=== PATIENT | female | born 1955 | race Caucasian/White ===

== ENCOUNTER 2016-10-01 06:11 | Day surgery (SDC) | payer OTHER ==
[2016-10-01] VITALS (14 sets, daily range): BP systolic 111–166; BP diastolic 54–87; PULSE 57–85; RESP 1–21; O2SAT 97–100
[~2016-10-01] VITALS: Ht 149.9 cm; Wt 69.9 kg
[~2016-10-01 06:11] MED LIST: CeFAZolin Inj 2 GM in IV Premix 1 EACH IV ONE; ESOM40CA41 PO; HYDR-4003 PO; TETR500C2 PO
[2016-10-01] MEDS ORDERED: Propofol 10,000 mCg/mL 20 mL Inj ONE (06:12)
[2016-10-01] MEDS ORDERED: fentaNYL-PF 50 mCg/mL 2 mL Inj ONE (06:12)
[2016-10-01] MEDS: Lactated Ringer's 1,000 ML IV SCH ×2 (06:53→08:28)
--- NOTE | 2016-10-01 08:11 | PCM.HPANE ---
Patient Data Surgeon Admitting Provider: Attending Provider:Zeeshan Hess MD Primary Care Physician:Navya An PA-C Other Provider:Chris Agee Anesthesia Reason for Visit Left Knee Arthrofibrosis LEFT KNEE ARTHROFIBROSIS Ht/WT & BMI Height (Feet): 4 Height (Inches): 11 Weight (Kilograms): 69.9 Body Mass Index 31.00 Allergies Coded Allergies: morphine (Verified Allergy, Severe, agitated, DIZZINESS, CONFUSION, 10/01/16 ) Past Anesthesia History Anesthesia History: Denies:: Abnormal Airway, Anesthesia Reactions, Difficult Intubation, Fam Anesthesia Reaction Diabetes History Hx Diabetes?: No MRSA MRSA: No Medications Hypertension Medication: No Home Meds Incl Beta Stacie: No Reported Medications Hydrocodone-Acetaminophen 5-325 mg 1 Each Tablet1 Tablet PO Q8H PRN For Pain Ref 0 09/26/16 Tetracycline 500 Mg [id number] Mg PO BID 09/26/16 Esomeprazole Magnesium (Nexium)40 Mg Capsule.dr40 Mg PO BID Ref 0 07/11/16 Discontinued Reported Medications Cholecalciferol (Vitamin D3) (Vitamin D3)2,000 Unit Tablet2,000 Unit PO DAILY 07/11/16 Discontinued Scripts Hydroxyzine Pamoate (HydrOXYzine Pamoate)25 Mg [id number] Mg PO Q6H PRN discomfort #12 CAPSULE Prov:Mila Barnes PA-C 07/19/16 Hydrocodone-Acetaminophen 5-325 mg 1 Each Tablet1-2 Tablet PO Q4H PRN For Moderate Pain #60 TABLET Prov:Mila Barnes PA-C 07/19/16 Rivaroxaban (Xarelto)10 Mg [id number] Mg PO DAILYWM #12 TABLET Prov:Mila Barnes PA-C 07/19/16 History History of ENT Problems?: No HEENT History: Denies:: Abnormal Airway Cataracts Difficult Intubation Dysphagia Hearing Problem Sinus Problem TMJ Hx of Heart Problems?: Yes Cardiovascular History: Positive for:: Heart Murmur (cardiac clearance from Dr Gold for 07/09 surgery) Denies:: AICD Cardiac Surgery Chest Pain Congestive Heart Failure Edema Hypertension Irregular Heartbeat Pacemaker Rheumatic Fever Thrombophlebitis Hx of Respiratory Problem?: No Respiratory History: Denies:: Asthma COPD Chest Surgery Dyspnea Emphysema Hemoptysis Oxygen Administration Pneumonia Pulmonary Embolism Tuberculosis Use of C-PAP Machine Use of Inhalers / NEBS Hx Neurologic Problems?: No Neurological History: Positive for:: Dizziness (vertigo) Denies:: Alzheimer's Disease CVA Dementia Headaches Multiple Sclerosis Parkinson's Disease Seizures TIA Hx of GI Problems?: Yes Gastrointestinal History: Positive for:: Gastroesphageal Reflux (food takes a long time to go down) Heartburn Denies:: Cirrhosis Diverticulitis Gall Bladder Disease Gastrointestinal Bleeding Hepatitis Hiatal Hernia Liver Disease Rectal Bleeding Hx of Problems?: No Genitourinary History: Denies:: Kidney Stones Urinary Tract Infection Female Hx: Positive for:: Problems with Breasts? (hx of benign breast biopsy) Denies:: Currently (post menopausal) Skin History: Positive for:: History Skin Disorders? (rashing on face- currently being eval. waiting for derm appt) Denies:: Pressure Ulcers Hx Musculoskeletal Problems?: Yes Musculoskeletal History: Positive for:: Joint Replacement (left knee) Musculoskeletal Trauma (left knee pain current admission problem) Osteoarthritis Denies:: Fibromyalgia Systemic Lupus Hx of Psycho/Social Problems?: No Psycho Social History: Denies:: Anxiety Bipolar Disorder Hx Depression Suicide Attempt Hx Surgeries?: Yes (right rotator cuff repair, c sections, left total knee) Hx Any Other Health Problems?: Yes Other History: Denies:: Cancer Hospitalization Thyroid Disease History Blood Transfusions: Positive for:: Accept Blood Products? Denies:: Blood Transfuse Reaction Blood Transfusions Hx Diabetes: No Hx Alcohol Use: YesAlcoholic Drinks Per Day: glass wine every few monthsHx Substance Use: NoHave You Smoked inLast 12 mo: No Stop/Bang S-Snoring: Do You Snore Loudly: No T-Tired: feel tired, fatigued: No O-Obsered: Observed not breath: No P-Blood Pressure: treated: No B- Body Mass Index > 35 kg/m2: No A- Age over 50: Yes N- Neck Large Circumference: No G- Gender Male: No PETER Total Score: 1 PETER Risk Assessment: Low Risk, <3 Yes Risk Assessment Category Category 1A: Patient has history of documented sleep apnea, and HAS NOT received any narcotic, sedative or anesthesia administration during this stay. Category 1B: Patient has history of documented sleep apnea, and HAS received any narcotic , sedative or anesthesia administration during this stay Category 2: Patient has SUSPECTED Obstructive Sleep Apnea, and HAS received any narcotic , sedative or anesthesia administration during this stay. Category 3: Patient has SUSPECTED Obstructive Sleep Apnea and HAS NOT received narcotic, sedative or anesthesia administration during this stay. Category 4: Outpatient in Procedural Areas with known sleep apnea or who screen positive for High Risk via the STOP/BANG questionnaire. Exam Exam Vital Signs Vital Signs Date Time Temp Pulse Resp B/P Pulse Ox O2 Delivery O2 Flow Rate FiO2 10/01/16 06:36 36.6 69 14 139/76 97 Room Air General Appearance: Alert, Oriented X3, Cooperative, No Acute Distress HEENT/AIRWAY: MP 3 Lungs: Clear to Auscultation, Normal Air Movement Heart: Exam Unremarkable, Regular Rate/Rhythm, No Murmurs/Rubs/Gallops Meds/Labs/Diagnostics Admission Meds Current Medications Lactated Ringer's (Lr) 1,000 ml @ 120 mls/hr Q8H20M IV Last administered on t 06:53; Start 10/01/16 at 05:00; Stop 10/01/16 at 13:19 Plan Impression Patient chart reviewed, patient interviewed and anesthestic plan with risks, benefits, and alternatives discussed, and informed consent obtained. NPO Status: 2100 09/30/16 ASA Physical Status: ASA1 Normal Healthy Anesthetic Plan: GA Bene/Risks/Altern/Consents: Yes HP Complete Prior to Induction: Yes Nadeem Amador MD Oct 01, 2016 08:11
[2016-10-01] MEDS ORDERED: Dexamethasone 4 mg/mL Inj INTRARTICU ONE (08:38)
[2016-10-01] MEDS ORDERED: Bupivacaine-MPF 0.5% 30 mL Inj INFILTRATE ONE (08:38)
[2016-10-01] MEDS ORDERED: EPHEDrine Sulfate 50 mg/mL Inj IVPUSH PRN (08:55)
[2016-10-01] MEDS ORDERED: Phenylephrine 10,000 mCg/mL Inj IVPUSH PRN (08:55)
[2016-10-01] MEDS ORDERED: Dexamethasone 4 mg/mL Inj IVPUSH PRN (08:55)
[2016-10-01] MEDS ORDERED: MetoCLOpramide 5 mg/mL 2 mL Inj IVPUSH PRN (08:55)
[2016-10-01] MEDS ORDERED: HYDROmorphone 1 mg/mL Inj IVPUSH PRN (08:55)
[2016-10-01] MEDS ORDERED: Lactated Ringer's 500 ML IV PRN (08:55)
[2016-10-01] MEDS ORDERED: Lactated Ringer's 1,000 ML IV SCH (08:55)
[2016-10-01] MEDS ORDERED: Ondansetron 2 mg/mL 2 mL Inj IVPUSH PRN (08:55)
--- NOTE | 2016-10-01 08:57 | PCM.ANEP1 ---
Post Anesthesia Phase 1 PACU Phase 1 Assessment Vital Signs Vital Signs Date Time Temp Pulse Resp B/P Pulse Ox O2 Delivery O2 Flow Rate FiO2 10/01/16 06:36 36.6 69 14 139/76 97 Room Air Anesthetic Administered: GA Level of Alertness: Sleepy, easy to arouse NORTH's with Equal Strength: Yes Pain: No Nausea or Vomiting: No Oxygen Delivery: Simple Mask Lungs: Clear to Auscultation, Normal Air Movement Dermatome Level: Full Sensation Nadeem Amador MD Oct 01, 2016 08:57
[2016-10-01] MEDS ORDERED: HYDROcodone-APAP 5-325 mg Tablet PO PRN (09:05)
[2016-10-01] MEDS ORDERED: Ketorolac 15 mg/mL Inj IVPUSH ONE (09:05)
[2016-10-01] MEDS: fentaNYL-PF 50 mCg/mL 2 mL Inj IVPUSH PRN ×3 (09:05→09:20)
--- NOTE | 2016-10-01 09:07 | PCM.ORTHOP ---
Orthopedic Operative Report Date of Service: Oct 01, 2016 Pre Operative Diagnosis Left total knee arthroplasty arthrofibrosis Post Operative Diagnosis Same Procedure Left total knee arthroplasty manipulation under anesthesia, intra-articular steroid injection Surgeon Surgeon: Zeeshan Hess MD Assistants: Ranjit Cabello Indication for Procedure Left total knee arthroplasty arthrofibrosis Findings Scar tissue formation, lysis Details of Procedure Indications: Jeanette Meredith 61 old female who is status post left total knee arthroplasty in June 2016. She reports that she was unable to get a ride to her physical therapist the first 2 weeks status post surgery. She has a history of adhesive capsulitis in her right shoulder which she had to undergo manipulation under anesthesia. She developed left knee arthrofibrosis subsequently. The patient had exhausted all conservative treatments including, NSAIDs, narcotics, physical therapy. A clear explanation was given to the patient regarding the condition present, and the available conservative and surgical options. It was emphasized that the risks and benefits of surgery include but are not limited to damage to adjacent structures such as nerves, blood vessels and tendons, senior care disability and pain, arthritis, hypersensitivity, deep vein thrombosis, pulmonary embolism, broken hardware, fracture of bone, failure of surgery, need for further procedures at time of surgery or later, loss of limb or life. The patient was given an explanation and the patient voiced understanding of what to expect after the procedure or surgery, the limitations in activities of daily living, the likely duration for post operative recovery and the instructions that are to be followed. At the end the patient was invited to seek clarification or ask further questions but there were none. The patient voiced understanding of the entire consultation. Description of Procedure: Patient taken to operating room and transferred to operating table in supine position. Time out was performed with both anesthesia and orthopaedics faculty present to confirm details of case to be performed. After time out performed, patient placed under anesthesia. The left knee was then carefully manipulated in a controlled fashion in flexion. Preoperatively, the patient's motion was: ROM 10-95 Intraoperatively, after manipulation the patient's motion was: ROM 2 - 125 Discharge injection was performed intra-articularly from the suprapatellar pouch with 10 mL of Marcaine plain and 8 mg of dexamethasone. Patient tolerated procedure well and there was no complications. I was present for the entire procedure. Patient has physical therapist to start tomorrow for aggressive range of motion. Grafts, Implants: None Complications There were no periprocedural complications identified. Condition Stable Anesthetic Administered: GA Catheters: None Output, Estimated Blood Loss: 0 Blood Admin during surgery: No Surgical Cast or Splint: None Surgical Specimen Removed: No Specimen sent to Pathology: No copies to: Zeeshan Hess MD, Christopher L MD Oct 01, 2016 09:07
--- NOTE | 2016-10-01 09:15 | PCM.ANEP2 ---
Post Anesthesia Evaluation ASA/CMS Post Anesthesia VS in Patient's Normal Range?: Yes Resp Stable; Airway Patent?: Yes CV Function & Hydration Stable: Yes Mental Status Recovered?: Yes Pain control Satisfactory?: Yes N/V Control Satisfactory?: Yes Nadeem Amador MD Oct 01, 2016 09:15
[2016-10-01] MEDS ORDERED: HYDROmorphone 0.5 mg/0.5 mL iSecure Syringe ONE (09:20)
[2017-01-28] MEDS ORDERED: ESOM40CA41 PO (16:49)
[2017-01-28] MEDS ORDERED: HC A RC (16:49)
== END 2016-10-01 23:59 | disposition home or self-care (01) ==
LOC: SAS 06:11
PROVIDERS: ATTEND Orthopaedic Surgery
DX: M24.662 Ankylosis, left knee (principal); G89.4 Chronic pain syndrome; Z79.891 Long term (current) use of opiate analgesic
CPT/HCPCS: 27570; J0690; J1100; J1170; J1885; J2250; J3010; J7120

== ENCOUNTER 2017-01-30 05:58 | Day surgery (SDC) | payer OTHER ==
[~2017-01-30] VITALS: Ht 149.9 cm; Wt 69.7 kg
[2017-01-30] VITALS (8 sets, daily range): BP systolic 107–128; BP diastolic 61–77; PULSE 56–68; RESP 11–18; O2SAT 97–100
[2017-01-30] MEDS: Lactated Ringer's 1,000 ML IV SCH ×2 (05:22→07:24)
[~2017-01-30 05:58] MED LIST changes: -CeFAZolin Inj 2 GM in IV Premix 1 EACH IV ONE; +HC A RC; -HYDR-4003 PO; -TETR500C2 PO
[2017-01-30] MEDS ORDERED: Dexamethasone 4 mg/mL Inj ONE (05:59)
[2017-01-30] MEDS ORDERED: Ondansetron 2 mg/mL 2 mL Inj ONE (05:59)
[2017-01-30] MEDS ORDERED: fentaNYL-PF 50 mCg/mL 2 mL Inj ONE (05:59)
[2017-01-30] MEDS ORDERED: Propofol 10,000 mCg/mL 20 mL Inj ONE (05:59)
[2017-01-30] MEDS ORDERED: Bupivacaine Liposome 1.3% 20 mL Inj INFILTRATE ONE (06:00)
--- NOTE | 2017-01-30 06:36 | PCM.HPANE ---
Patient Data Surgeon Admitting Provider: Attending Provider:Ramiro Martinez MD Primary Care Physician:Navya An PA-C Other Provider:Abeba Ageeingham Anesthesia Reason for Visit External Hemorrhoids Ht/WT & BMI Height (Feet): 4 Height (Inches): 11 Weight (Kilograms): 69.4 Body Mass Index 30.00 Allergies Coded Allergies: morphine (Verified Allergy, Severe, agitated, DIZZINESS, CONFUSION, 10/01/16 ) Past Anesthesia History Anesthesia History: Denies:: Abnormal Airway, Anesthesia Reactions, Difficult Intubation, Fam Anesthesia Reaction Diabetes History Hx Diabetes?: No MRSA MRSA: No Medications Reported Medications Hydrocortisone/Pramoxine (Proctofoam-Hc 1%-1% Foam)10 Gm Foam10 Gm RC PRN For Pain 01/28/17 Esomeprazole Magnesium (Nexium)40 Mg Capsule.dr40 Mg PO BID Ref 0 01/28/17 Discontinued Reported Medications Hydrocodone-Acetaminophen 5-325 mg 1 Each Tablet1 Tablet PO Q8H PRN For Pain Ref 0 09/26/16 Tetracycline 500 Mg [id number] Mg PO BID 09/26/16 Esomeprazole Magnesium (Nexium)40 Mg Capsule.dr40 Mg PO BID Ref 0 07/11/16 History History of ENT Problems?: No HEENT History: Denies:: Abnormal Airway Cataracts Difficult Intubation Dysphagia Hearing Problem Sinus Problem TMJ Denture Type: None Teeth Condition: Within Normal Limits Hx of Heart Problems?: Yes Cardiovascular History: Positive for:: Heart Murmur (cardiac clearance from Dr Gold for 07/09 surgery) Denies:: AICD Cardiac Surgery Chest Pain Congestive Heart Failure Edema Hypertension Irregular Heartbeat Pacemaker Rheumatic Fever Thrombophlebitis Hx of Respiratory Problem?: No Respiratory History: Denies:: Asthma COPD Chest Surgery Dyspnea Emphysema Hemoptysis Oxygen Administration Pneumonia Pulmonary Embolism Tuberculosis Use of C-PAP Machine Hx Neurologic Problems?: No Neurological History: Positive for:: Dizziness (vertigo) Denies:: Alzheimer's Disease CVA Dementia Headaches Multiple Sclerosis Parkinson's Disease Seizures Hx of GI Problems?: Yes Hx of Problems?: No Genitourinary History: Denies:: Kidney Stones Urinary Tract Infection Female Hx: Positive for:: Problems with Breasts? (hx of benign breast biopsy) Denies:: Currently (post menopausal) Skin History: Positive for:: History Skin Disorders? (rashing on face- currently being eval. waiting for derm appt) Denies:: Pressure Ulcers Hx Musculoskeletal Problems?: Yes Musculoskeletal History: Positive for:: Joint Replacement (left knee/ as well as post op knee manip) Musculoskeletal Trauma Denies:: Systemic Lupus Hx of Psycho/Social Problems?: No Psycho Social History: Denies:: Anxiety Bipolar Disorder Hx Depression Suicide Attempt Hx Surgeries?: Yes (right rotator cuff repair, c sections, left total knee) Hx Any Other Health Problems?: Yes Other History: Denies:: Cancer Hospitalization Thyroid Disease History Blood Transfusions: Denies:: Blood Transfuse Reaction Blood Transfusions Hx Diabetes: No Hx Alcohol Use: YesHx Substance Use: No Smoking Status: Never Smoker Have You Smoked inLast 12 mo: No Stop/Bang S-Snoring: Do You Snore Loudly: No T-Tired: feel tired, fatigued: No O-Obsered: Observed not breath: No P-Blood Pressure: treated: No B- Body Mass Index > 35 kg/m2: No A- Age over 50: Yes N- Neck Large Circumference: No G- Gender Male: No PETER Total Score: 1 PETER Risk Assessment: Low Risk, <3 Yes Risk Assessment Category Category 1A: Patient has history of documented sleep apnea, and HAS NOT received any narcotic, sedative or anesthesia administration during this stay. Category 1B: Patient has history of documented sleep apnea, and HAS received any narcotic , sedative or anesthesia administration during this stay Category 2: Patient has SUSPECTED Obstructive Sleep Apnea, and HAS received any narcotic , sedative or anesthesia administration during this stay. Category 3: Patient has SUSPECTED Obstructive Sleep Apnea and HAS NOT received narcotic, sedative or anesthesia administration during this stay. Category 4: Outpatient in Procedural Areas with known sleep apnea or who screen positive for High Risk via the STOP/BANG questionnaire. Exam Exam Vital Signs Vital Signs Date Time Temp Pulse Resp B/P Pulse Ox O2 Delivery O2 Flow Rate FiO2 01/30/17 06:33 35.9 56 18 127/71 97 Room Air General Appearance: Alert, Oriented X3, Cooperative, No Acute Distress HEENT/AIRWAY: MP 2 Lungs: Clear to Auscultation, Normal Air Movement Heart: Exam Unremarkable, Regular Rate/Rhythm, No Murmurs/Rubs/Gallops Meds/Labs/Diagnostics Admission Meds Current Medications Lactated Ringer's (Lr) 1,000 ml @ 120 mls/hr Q8H20M IV Last administered on t 05:22; Start 01/30/17 at 05:00; Stop 01/30/17 at 13:19 Plan Impression Patient chart reviewed, patient interviewed and anesthestic plan with risks, benefits, and alternatives discussed, and informed consent obtained. ASA Physical Status: ASA1 Normal Healthy Anesthetic Plan: GA Bene/Risks/Altern/Consents: Yes HP Complete Prior to Induction: Yes Praful Craig MD Jan 30, 2017 06:36
[2017-01-30] MEDS ORDERED: CeFAZolin Inj 2 gm / 50mL D5W IV ONE (06:50)
[2017-01-30] MEDS ORDERED: CeFAZolin Inj 2 GM in IV Premix 1 EACH IV ONE (07:00)
[2017-01-30] MEDS ORDERED: Ondansetron 2 mg/mL 2 mL Inj IVPUSH PRN (07:45)
[2017-01-30] MEDS ORDERED: Dexamethasone 4 mg/mL Inj IVPUSH PRN (07:45)
[2017-01-30] MEDS ORDERED: MetoCLOpramide 5 mg/mL 2 mL Inj IVPUSH PRN (07:45)
[2017-01-30] MEDS ORDERED: Lactated Ringer's 1,000 ML IV SCH (07:45)
[2017-01-30] MEDS ORDERED: Labetalol 5 mg/mL 4 mL Inj IV PRN (07:45)
[2017-01-30] MEDS ORDERED: Phenylephrine 10,000 mCg/mL Inj IVPUSH PRN (07:45)
[2017-01-30] MEDS ORDERED: Atropine 0.4 mg/mL Inj IVPUSH PRN (07:45)
[2017-01-30] MEDS ORDERED: EPHEDrine Sulfate 50 mg/mL Inj IVPUSH PRN (07:45)
[2017-01-30] MEDS ORDERED: HYDROmorphone 1 mg/mL Inj IVPUSH PRN (07:45)
[2017-01-30] MEDS ORDERED: Lactated Ringer's 500 ML IV PRN (07:45)
[2017-01-30] MEDS ORDERED: fentaNYL-PF 50 mCg/mL 2 mL Inj IVPUSH PRN (07:45)
--- NOTE | 2017-01-30 08:23 | PCM.DISURG ---
Surgical Discharge Instruction Date of Service Jan 30, 2017 Dates of Hospitalization Date of Hospital Admission Providers Admitting Physician: Primary Care Physician: Navya An PA-C Attending Physician: Ramiro Martinez MD Discharge Diagnosis Discharge Diagnosis Hemorrhoids, rectocele Diet Discharge Diet: No restrictions Activity Discharge Activity-General: Activity as pain allows Dressing and Incisional Care Dressing Care: Change soiled dressing (as needed.) Hygiene: May shower, Other (warm sitz baths twice daily) Follow Up Plan Follow Up Plan In the general surgery PA postoperative clinic in 2-3 weeks Call your provider for: Fever (over 101.5) Ramiro Martinez MD Jan 30, 2017 08:23
--- NOTE | 2017-01-30 08:29 | PCM.SURGOP ---
Surgical Operative Report Date of Service: Jan 30, 2017 Pre Operative Diagnosis External and internal hemorrhoid Post Operative Diagnosis Same, rectocele Procedure: Exam under anesthesia, right posterior hemorrhoidectomy Surgeon [facility] Consultant: Surgeon: Ramiro Martinez MD Assistants: None Indication for Procedure 61-year-old woman who presented with prolapsing tissue with every bowel movement , causing significant pain. She also had a single episode of significant rectal bleeding. She underwent colonoscopy in August which showed internal hemorrhoids, diverticulosis, but no other abnormalities. After discussion of risks and benefits, she agreed to proceed with hemorrhoidectomy. Findings: There was a right posterior hemorrhoid bundle which had both internal and external components. There was a significant rectocele. Procedure Details After smooth induction of general anesthesia with an LMA, she was placed in the high lithotomy position, and was prepped and draped in wide sterile fashion. A procedural pause was performed according to the SCOAP checklist, and all were found to be in agreement. Because of her recent joint replacement, a single dose of antibiotics was given. Digital rectal exam was performed, revealing internal and external hemorrhoid tissue in the right posterior position, as well as a fairly significant rectocele, not previously appreciated. Exposure of the hemorrhoid bundle without obstruction from the rectocele was actually relatively difficult. A stay suture was placed at the apex of the hemorrhoid bundle, above the dentate line. The hemorrhoid was excised from the right posterior position down to the level of the external anal sphincter with an elliptical incision, and once it was dissected free, it was sent for permanent pathology. Hemostasis was achieved with electrocautery. The anoderm was then closed with a running, locking 2-0 chromic suture, again which was somewhat difficult because of her rectocele. There was no anal stenosis at the end of the closure. A perianal block was then performed using liposomal bupivacaine. Sterile dressings were applied. At the end of the case all needle and sponge counts were correct 2. The patient was awakened from anesthesia without difficulty, and taken to the recovery room in satisfactory condition, having tolerated the procedure well. Complications There were no periprocedural complications identified. Surgical Specimen Removed: Yes Specimen sent to Pathology: Yes Surgical Specimen description: Hemorrhoid Anesthetic Plan: GA Grafts, Implants: None Output, Estimated Blood Loss: 20 Blood Administration during garcia: No Drains: None Catheters: None copies to: Navya An PA-C, Joshua D MD Jan 30, 2017 08:29
--- NOTE | 2017-01-30 08:47 | PCM.ANEP1 ---
Post Anesthesia PACU Phase 1 Assessment Vital Signs Vital Signs Date Time Temp Pulse Resp B/P Pulse Ox O2 Delivery O2 Flow Rate FiO2 01/30/17 08:35 57 11 117/73 100 Simple Mask 8 01/30/17 08:30 36.0 68 14 120/61 100 Simple Mask 8 01/30/17 06:33 35.9 56 18 127/71 97 Room Air Anesthetic Administered: GA Level of Alertness: Awake, talking NORTH's with Equal Strength: No Pain: No Nausea or Vomiting: No CV Function & Hydration Stable: Yes Airway Device: Oralpharangeal Airway Oxygen Delivery: Simple Mask, Non-Rebreather Mask Lungs: Clear to Auscultation, Normal Air Movement PACU Phase 2 Assessment Complications: No Follow up Care: No Patient Instructions Provided: N/A Praful Craig MD Jan 30, 2017 08:47
--- NOTE | 2017-02-02 14:15 | PATH ---
SURGICAL PATHOLOGY Attending Physician:Kya Ralph CASE STATUS: Signed Out PATIENT NAME: LORRIE JACOBSON PID: [id number] : 1955 DATE COLLECTED:01/30/2017 15:48 SPECIMEN: Hemorrhoids CLINICAL HISTORY: HEMORRHOID EXTERNAL 1. HEMORRHOID FINAL DIAGNOSIS: 1.SPECIMEN DESIGINATED HEMORRHOID: EXTERNAL HEMORRHOID, NEGATIVE FOR ATYPIA. ICD10 K64.9 GROSS DESCRIPTION: The specimen is received in one formalin filled container labeled with the patient's name, sublabeled "hemorrhoid" and consists of a pink-pickett portion of tissue which measures 2.2 x 2.0 x 1.6 CM. The specimen is inked blue. One livestock sales representative section is submitted in one cassette. 01/30/2017 [facility] MICRO DESCRIPTION: See diagnosis. ICD-9 CODES: CPT CODES: 1: 96108 Electronically Signed Out Ulysses Mayberry MD [facility] [address], [place] [address] Technical component performed at [facility], [facility] [address], [place], [address]
== END 2017-01-30 23:59 | disposition home or self-care (01) ==
LOC: SAS 05:58
PROVIDERS: ATTEND Student in an Organized Health Care Education/Training Program
DX: K64.8 Other hemorrhoids (principal); K64.4 Residual hemorrhoidal skin tags; N81.6 Rectocele; K62.5 Hemorrhage of anus and rectum; I10 Essential (primary) hypertension; R01.1 Cardiac murmur, unspecified; E78.5 Hyperlipidemia, unspecified; K21.9 Gastro-esophageal reflux disease without esophagitis; G89.29 Other chronic pain; M25.562 Pain in left knee; Z96.652 Presence of left artificial knee joint; Z87.891 Personal history of nicotine dependence
CPT/HCPCS: 46255; 88304; J0690; J1100; J2250; J2405; J3010; J7120